=== PATIENT | female | born 2000 | race Caucasian/White ===

== ENCOUNTER 2024-07-13 15:09 | Emergency (ER) | payer SELFPAY ==
[~2024-07-13] VITALS: Ht 162.6 cm; Wt 95.0 kg
[2024-07-13 15:12] VITALS: O2SAT 97
[2024-07-13] MEDS: ACETAMINOPHEN 325MG TABLET PO ONE (16:23)
[2024-07-13 17:55] VITALS: BP 130/84; PULSE 80; RESP 18; TEMP 36.66960; O2SAT 97
== END 2024-07-13 17:55 | disposition home or self-care (01) ==
LOC: ER 15:09
DX: S00.83XA Contusion of other part of head, initial encounter (principal); M25.571 Pain in right ankle and joints of right foot; V49.49XA Driver injured in collision with other motor vehicles in traffic accident, initial encounter; Y93.89 Activity, other specified; Y92.89 Other specified places as the place of occurrence of the external cause; Y99.8 Other external cause status
CPT/HCPCS: 73590; 73610; 73630; 70450; 70486; 72125; 29515; 99291; Z7610